=== PATIENT | female | born 1960 | race Caucasian/White ===

== ENCOUNTER 2017-01-22 11:07 | Emergency (ER) | payer OTHER ==
[~2017-01-22] VITALS: Ht 170.2 cm; Wt 90.9 kg
[2017-01-22 11:10] VITALS: BP 125/79; PULSE 72; RESP 16; O2SAT 98
[2017-01-22] MEDS ORDERED: TdaP Vaccine 0.5 mL Inj IM ONE (12:15)
--- NOTE | 2017-01-22 12:24 | ED.REPORT ---
HPI-General Illness Date of Service Jan 22, 2017 ED Provider: Carroll Bauman PA-C Kacey is an otherwise healthy 48-year-old female who presents with chief complaint of a laceration. She reports having her left index finger with a power veneer trimmer prior to presentation. Denies diabetes, HIV, immunosuppression, bleeding/clotting disorders. She is unsure of her tetanus status. She is right-handed. She is a history one year ago of a total knee arthroscopy. Nursing Notes Stated Complaint: LACERATION ON LT HAND/INJURY Chief Complaint: Laceration Nursing Notes Reviewed: Yes Allergies: Coded Allergies: No Known Allergies (Unverified , 01/22/17) Scheduled Cephalexin (Keflex) 500 Mg Capsule 500 MG PO QID Scheduled PRN Oxycodone (Roxicodone) 5 Mg Tablet 5-10 MG PO Q4H PRN PRN For Pain General Time Seen by MD: 11:15 Chief Complaint Laceration Past Medical History Past Medical History Denies Review of Systems Negative unless stated otherwise in history of present illness Physical Exam General: Well appearing, well developed, well nourished, no acute distress. Left hand: Deep laceration on the palmar aspect of the left first digit just distal to the MCP joint. Base well visualized, no foreign bodies or tendon damage noted. Full strength and range of motion at MCP, PIP and DIP joints. Sensation slightly reduced distal. Brisk capillary refill. Head: Atraumatic, normocephalic. Eyes: No scleral icterus or injection. No discharge. Vision grossly intact. ENT: Voice clear, hearing grossly intact. Respiratory: No respiratory distress, no increased work of breathing. Speaks in complete sentences. Skin: Warm and dry. Neurological: Grossly nonfocal. Psychological: alert and oriented. Speech appropriate, linear and logical. Behavior appropriate. Vital Signs Vital Signs Date Time Temp Pulse Resp B/P Pulse Ox O2 Delivery O2 Flow Rate FiO2 01/22/17 12:40 36.6 75 120/83 99 Room Air 01/22/17 11:10 36.3 72 16 125/79 98 Room Air Initial VS: Vital signs normal Procedures Laceration Management Procedure Performed by: Allied health pract Consent / Setup / Site Prep: Informed consent provided, Consent from patient , Hand hygiene observed Location of Wound: Aspect of left first digit just distal to the MCP joint. Wound Length: 2 cm Local Anesthesia: Lidocaine 1%, 5cc, 27g needle Wound Preparation: Normal saline Debridement: Minimal Irrigation: 250 cc Foreign Body Explore / Removal: Explored for foreign body Repair Skin: Nylon (5-0) # Sutures - Skin: 7 Suture Technique: Simple (6), Mattress (1) Post-Procedure / Complications: Antibiotic oint applied, Dressing applied ( gauze dressing, wrap, splint, Coban), No complications, Condition improved, Tolerated procedure well, Patient stable Re-Eval/Medical Decision Med Decision/Clinical Course Otherwise healthy right-handed 48-year-old female presents with a deep laceration to the palmar aspect of the first digit of the left hand just distal to the MCP joint. Mechanism is a powered veneer trimmer. Sensation somewhat altered distal to injury. Circulation intact. Strength and range of motion intact at MCP, PIP and DIP joints. Based well-visualized and no tendon damage or foreign bodies observed. Closed with interrupted sutures, dressed with antibiotic ointment and gauze, splint. Tetanus shot provided and prophylactic antibiotics prescribed due to the patient's relatively recent total knee arthroscopy. Provided referral to a hand specialist though the patient states they have one of their own in [place] that they will like to see. Advise over- the-counter analgesia provided oxycodone supplement with precautions. Advised emergency return precautions. Patient verbalizes understanding and consent to the plan. Discharge & Departure Primary Impression: Laceration Disposition: Home Discharge Condition All VS Reviewed: Yes Condition: Stable Patient Instructions: Suture Care (ED) Additional Instructions: Evaluation in the emergency department for a laceration. This appears to be a clean wound, with no damage to the joint capsule or tendons. Because of the relatively recent history of a knee replacement, I will prescribe Keflex 500 mg taken 4 times a day for 5 days. We have provided you with a tetanus booster We have cleaned, sutured and dressed the wound with a splint, antibiotic ointment and gauze. Please leave this dressing on and dry for the next 24 hours. After that you can remove the dressing, clean with soap and water and then reapply antibiotic ointment and gauze or Band-Aid. Please do not submerge the wound as in washing dishes, swimming or soaking in a tub until you have the sutures removed. The pain is best treated with 600 mg of ibuprofen (Advil, Motrin) every 6 hours , or 1000 mg of acetaminophen (Tylenol) every 6 hours. These drugs can be taken at the same time for more severe pain. I will write a prescription for a small amount of oxycodone to be taken every 4-6 hours for pain not controlled by these other medications. Please do not drive or drink alcohol within 4 hours of taking this medication. Be vigilant for signs of infection. While a small amount of redness, tenderness and clear or pink drainage is normal, any increasing pain, redness, swelling or the appearance of pus suggests infection. More severe infection as suggested by symptoms such as fever, chills, feeling ill, racing heart. Please return to emergency Department if you notice signs of infection. I will provide a referral for follow-up with a hand specialist. Please contact them or your preferred provider to arrange follow-up next week. Referrals: Marcel Carrasco DO EDSupervising Provider for [facility]: [address] DO copies to: Marcel Carrasco Seth PA-C Jan 22, 2017 12:24
[2017-01-22] MEDS ORDERED: CEPH-512 PO (12:27)
[2017-01-22] MEDS ORDERED: OXYC-474 PO (12:27)
[2017-01-22 12:40] VITALS: BP 120/83; PULSE 75; O2SAT 99
== END 2017-01-22 12:41 | disposition home or self-care (01) ==
LOC: SED 11:10
DX: S61.211A Laceration without foreign body of left index finger without damage to nail, initial encounter (principal); W29.3XXA Contact with powered garden and outdoor hand tools and machinery, initial encounter; Y92.9 Unspecified place or not applicable; Y93.89 Activity, other specified; Y99.8 Other external cause status; Z96.659 Presence of unspecified artificial knee joint; Z23 Encounter for immunization